=== PATIENT | female | born 1970 | race Caucasian/White ===

== ENCOUNTER 2021-06-02 07:30 | Outpatient (CLI) | payer BC ==
[~2021-06-02 07:30] MED LIST: IBUP-1223 PO; MECL-101 PO
== END 2021-06-02 23:59 | disposition home or self-care (01) ==
LOC: ROC 07:30
PROVIDERS: ATTEND Radiology Radiation Oncology
DX: Z08 Encounter for follow-up examination after completed treatment for malignant neoplasm (principal); D05.12 Intraductal carcinoma in situ of left breast; E78.5 Hyperlipidemia, unspecified; E11.9 Type 2 diabetes mellitus without complications; Z17.0 Estrogen receptor positive status [ER+]; Z87.891 Personal history of nicotine dependence
CPT/HCPCS: 99212; G0463